=== PATIENT | female | born 1990 | race Caucasian/White ===

== ENCOUNTER 2017-06-06 08:58 | Emergency (ER) | payer MEDICARE, OTHER ==
[~2017-06-06] VITALS: Ht 172.7 cm; Wt 78.5 kg
[~2017-06-06 08:58] MED LIST: Z.0.CELEXA10 MG; Z.0.VICODIN 5-5001 E
--- NOTE | 2017-06-06 10:08 | Diagnostic Imaging Report ---
PROCEDURE:CHEST SINGLE (NOT PORTABLE) TECHNIQUE:PA upright chest INDICATION:Sinus congestion; cough COMPARISON:None. FINDINGS: Lungs are clear. No pleural effusions. Normal cardiomediastinal silhouette. Intact skeleton. CONCLUSION: Normal chest. Dictated by: Jean Carlos Angeles M.D. on 06/06/2017 at 10:16 Electronically approved by: Jean Carlos Angeles M.D. on 06/06/2017 at 10:16
== END 2017-06-06 15:24 | disposition home or self-care (01) ==
LOC: ER 08:58
DX: J01.00 Acute maxillary sinusitis, unspecified (principal); Z33.1 Pregnant state, incidental
CPT/HCPCS: 71010; 87400; 99283